=== PATIENT | male | born 1970 | race Caucasian/White ===

== ENCOUNTER 2024-07-01 15:11 | Emergency (ER) | payer BC, SELFPAY ==
[2024-07-01 15:24] VITALS: BP 166/95
--- NOTE | 2024-07-01 15:26 | ED.GENMED ---
ED Provider Triage
<Norman Herrera PA-C - Last Filed: 07/01/24 15:27>
-
Patient seen by provider in Triage?: Seen in Triage
Attestation: A medical screening examination has been initiated by a qualified medical provider. Based on the assessment performed at this time, it has been determined that an emergent medical condition may exist and the patient has been informed
that further medical evaluation and possible additional diagnostic testing may be needed.
HPI: 54-year-old male presents with 1 weeks worth of swelling to the right leg. There is a family history of factor V Leiden. He is not anticoagulated. He denies chest pain or shortness of breath. No recent travel or surgery he is concerned for
DVT
Venous ultrasound right leg ordered
GENERAL: Alert , in no apparent distress
EYE: No visual abnormalities.
NECK: Trachea midline
ENT: No visible abnormalities.
LUNGS: No acute respiratory distress
NEUROLOGICAL: Alert and oriented
SKIN: Skin intact. No visible changes.
MUSCULOSKELETAL: Moving extremities normally
PSYCH: Normal and appropriate interaction.
This is a medical evaluation conducted in person to initiate diagnostic evaluation and provide initial therapeutics. Please see further documentation by the treating clinician.
History of Present Illness
<Norman Herrera PA-C - Last Filed: 07/01/24 15:27>
General
Chief Complaint: DVT/Possible Blood Clot
Time Seen by Provider: 07/01/24 16:59
<Slick Avila DO - Last Filed: 07/01/24 17:49>
History of Present Illness
History of Present Illness:
TIME OF INITIAL ENCOUNTER: 5 PM
HPI: The patient presents with 1 week of right lower extremity swelling primarily localized to the right foot and ankle�he plays basketball a lot but he denies any injury. The brother suddenly from a DVT/PE 6 months ago but he had been
traveling back and forth in the [facility] ([place]). His brother had been tested and his sister also was tested and both are positive for an unknown hypercoagulable state. This patient has not been tested for a hypercoagulable state. The patient does not
have any chest pain of breath.
EXAM:
GENERAL: Well appearing in no distress
HEENT: Moist oral mucosa
CARDIOVASCULAR: No murmurs, normal heart rate, regular rhythm, No chest wall tenderness
PULMONARY: No respiratory distress, breath sounds are clear and equal
ABDOMEN: Soft with no peritoneal signs, no tenderness
NEUROLOGIC: Excellent strength all extremities, no coordination deficits
PSYCHIATRIC: Appropriate mental status, normal insight and judgement
EXTREMITIES: There is bimalleolar soft tissue swelling with no significant tenderness, there is also dorsal soft tissue swelling at the right foot, there is no calf tenderness or swelling.
SKIN: No rash, no lesions
NUMBER AND COMPLEXITY OF PROBLEMS ADDRESSED AT THE ENCOUNTER
� Chronic conditions affecting care: Sarcoidosis
� Acute Exacerbation and/or Progression of Chronic Illness: This is an acute problem
� Differential Diagnosis includes: Foot and/or ankle sprain, low suspicion for DVT, Achilles pathology
AMOUNT AND/OR COMPLEXITY OF DATA TO BE REVIEWED AND ANALYZED
� I performed an independent evaluation of and my interpretation is:
EKG:
CT:
X-rays:
Laboratory Studies:
Other: Ultrasound imaging shows no sign of DVT
� Review of other/old records: I reviewed records. The patient was seen here nearly 3 years ago with chest discomfort. At that time the patient had reproducible pleuritic chest discomfort and symptoms at that time spontaneously
resolved.
� Clinical information was obtained by an independent historian: None needed
� Prescriptions/Medications Considered but not given:
� Further testing considered but not performed:
RISK OF COMPLICATIONS AND/OR MORBIDITY OR MORTALITY OF PATIENT MANAGEMENT
� Social determinants of health affecting care: Lives at home
� Discussion with other providers:
� Escalation of care including admission/observation vs risk of discharge considered: The patient presents primarily with right foot and ankle swelling without significant pain. There has been no injury. Given family history,
ultrasound imaging obtained.
ANY OTHER UPDATES:
5:50 PM: I reassessed patient. Ultrasound negative. He states that he is on his feet a lot and he works in a warehouse. Encouraged him to try to keep the leg elevated is much as possible.
Past History
<Norman Herrera PA-C - Last Filed: 07/01/24 15:27>
Past History
ED Past Medical History: Hypercholesterolemia and Other (Sarcoidosis)
ED Past Surgical History: Other
Social History
Tobacco: Non-smoker
Alcohol: None
Drug: None
Personal:
Living: with family
Employment: Employed
Family History
Family History: Negative Early CAD
Phy Exam
<Slick Avila DO - Last Filed: 07/01/24 17:49>
Physical Exam
Physical Exam:
See HPI
Course
<Norman Herrera PA-C - Last Filed: 07/01/24 15:27>
Orders/Labs/Results
Orders:
Orders
07/01/24 15:25
Venous Doppler Lwr Ext Rt [US Periph Venous LOWER Ext RT] Urgent
Comment:
Reason For Exam: swelling
Vital Signs
Initial and Last Documented VS:
Initial Vital Signs
Temp Pulse Resp BP Pulse Ox
36.5 C 61 18 166/95 97
07/01/24 15:24 07/01/24 15:24 07/01/24 15:24 07/01/24 15:24 07/01/24 15:24
Last Documented Vital Signs
Temp Pulse Resp BP Pulse Ox
36.5 C 61 18 166/95 97
07/01/24 15:24 07/01/24 15:24 07/01/24 15:24 07/01/24 15:24 07/01/24 15:24
<Slick Avila DO - Last Filed: 07/01/24 17:49>
Orders/Labs/Results
Orders:
Orders
07/01/24 15:25
Venous Doppler Lwr Ext Rt [US Periph Venous LOWER Ext RT] Urgent
Comment:
Reason For Exam: swelling
Vital Signs
Initial and Last Documented VS:
Initial Vital Signs
Temp Pulse Resp BP Pulse Ox
36.5 C 61 18 166/95 97
07/01/24 15:24 07/01/24 15:24 07/01/24 15:24 07/01/24 15:24 07/01/24 15:24
Last Documented Vital Signs
Temp Pulse Resp BP Pulse Ox
36.5 C 61 18 166/95 97
07/01/24 15:24 07/01/24 15:24 07/01/24 15:24 07/01/24 15:24 07/01/24 15:24
<Slick Avila DO - Last Filed: 07/01/24 17:49>
*Critical Care Note
Total Time (30-74mins, 75-104mins- exclusive of procedures): Not Applicable
ED Attending Note
<Norman Herrera PA-C - Last Filed: 07/01/24 15:27>
-
Portions of this chart may have been created with voice recognition software.� Occasional wrong word or��sound alike� substitutions may have occurred due to the inherent limitations of voice recognition software.
Discharge Plan
Departure
Patient Disposition: Home (Routine Discharge)
Date of Disposition: 07/01/24
Time of Disposition: 17:48
Patient with high blood pressure during this ER visit?: Yes
Discharge Problem:
Ankle swelling
Referrals:
Julio Silva MD [Family Provider] -
Activity Restrictions/Additional Instructions:
Try to keep the leg elevated is much as possible. Consider an Dionisio wrap or other compression. Based on ultrasound tonight, there is no sign of a blood clot.
Interventions
Interventions:
*Risk Screen - Suicide Last Done: 07/01/24 15:24
*Neglect/Abuse Screening Last Done: 07/01/24 15:24
Discharge Date and Time
Print Language: [place]
== END 2024-07-01 18:08 | disposition home or self-care (01) ==
LOC: EMR 15:11
PROVIDERS: EMERGENCY PHYSICIAN Emergency Medicine; FAMILY PHYSICIAN Family Medicine
DX: R22.41 Localized swelling, mass and lump, right lower limb (principal); E78.00 Pure hypercholesterolemia, unspecified; D86.9 Sarcoidosis, unspecified
CPT/HCPCS: 99284; 93971